=== PATIENT | female | born 1980 | race Caucasian/White ===

== ENCOUNTER 2017-04-21 11:00 | Observation (INO) | payer OTHER ==
[~2017-04-21] VITALS: Ht 152.4 cm; Wt 57.0 kg
[2017-04-21] MEDS ORDERED: PREN1TAB80 PO (11:31)
[2017-04-21 11:32] VITALS: BP 104/65
== END 2017-04-21 15:15 | disposition home or self-care (01) ==
LOC: 4S 11:00
PROVIDERS: ADMIT Obstetrics & Gynecology; ATTEND Obstetrics & Gynecology
DX: O41.03X0 Oligohydramnios, third trimester, not applicable or unspecified (principal); O09.523 Supervision of elderly multigravida, third trimester; Z3A.38 38 weeks gestation of pregnancy
CPT/HCPCS: 59025; G0378

== ENCOUNTER 2017-04-24 10:50 | Observation (INO) | payer OTHER ==
[~2017-04-24] VITALS: Ht 149.9 cm; Wt 56.7 kg
[~2017-04-24 10:50] MED LIST: PREN1TAB80 PO
[2017-04-24 11:06] VITALS: BP 119/68
== END 2017-04-24 12:00 | disposition home or self-care (01) ==
LOC: INTOOBSV 10:50 → 4S 10:50 → OBSVTOIN 10:50 → UNDOADMOB 10:55 → 4S 10:55
PROVIDERS: ADMIT Obstetrics & Gynecology; ATTEND Obstetrics & Gynecology
DX: O41.03X0 Oligohydramnios, third trimester, not applicable or unspecified (principal); O09.523 Supervision of elderly multigravida, third trimester; Z3A.38 38 weeks gestation of pregnancy
CPT/HCPCS: 59025; G0378

== ENCOUNTER 2017-04-28 05:48 | Inpatient (IN) | payer OTHER ==
[~2017-04-28] VITALS: Ht 149.9 cm; Wt 57.6 kg
[2017-04-28] MEDS ORDERED: RINGERS SOLUTION,LACTATED 1,000 ML IV ONE (06:03)
[2017-04-28] MEDS ORDERED: METOCLOPRAMIDE HCL 5 MG/ML 2 ML VIAL IVP ONE (06:15)
[2017-04-28] MEDS ORDERED: CITRIC ACID/SODIUM CITRATE 30 ML SOLUTION UDCUP PO ONE (06:15)
[2017-04-28] MEDS ORDERED: MORPHINE SULFATE/PF 1 MG/ML 10 ML AMP ONE (06:27)
[2017-04-28 06:28] LABS: BASOPHILS % (AUTO) 0.2 % (0.0-2.0); EOSINOPHILS % (AUTO) 2.1 % (1.0-6.0); HEMOGLOBIN 12.5 g/dL (12.0-16.0); LYMPHOCYTES # (AUTO) 2.2 K/uL (1.0-4.8); LYMPHOCYTES % (AUTO) 19.9 % (22.0-44.0); MEAN CORPUSCULAR HGB CONC 33.9 G/dL (31.0-37.0); MEAN CORPUSCULAR VOLUME 88 fL (80-100); MONOCYTES # (AUTO) 0.9 K/uL (0.1-1.0); MONOCYTES % (AUTO) 8.5 % (2.0-9.0); NEUTROPHILS # (AUTO) 7.6 K/uL (1.8-7.7); NEUTROPHILS % (AUTO) 69.3 % (40.0-70.0); RED BLOOD CELL COUNT(AUTO) 4.19 MIL/uL (4.00-5.20); RED CELL DISTRIBUTION WIDTH 14.2 % (11.5-14.5); WHITE BLOOD COUNT (AUTO) 10.9 K/uL (4.5-11.0)
[2017-04-28 06:53] VITALS: BP 112/55
[2017-04-28] MEDS ORDERED: MEPERIDINE-PF 25 MG/ML SYRINGE IVP PRN (07:00)
[2017-04-28] MEDS ORDERED: FentaNYL CITRATE-PF 100 MCG/2 ML VIAL IVP PRN (07:15)
[2017-04-28] MEDS ORDERED: DiphenhydrAMINE HCL 50 MG/ML VIAL IVP PRN (07:15)
[2017-04-28] MEDS ORDERED: NALBUPHINE HCL 10 MG/ML VIAL IVP PRN ×2 (07:15)
[2017-04-28] MEDS ORDERED: NALOXONE HCL 0.4 MG/ML VIAL IVP PRN (07:15)
[2017-04-28] MEDS ORDERED: ONDANSETRON HCL 4 MG/2 ML VIAL IVP PRN (07:15)
[2017-04-28] MEDS ORDERED: OXYGEN THERAPY IH SCH ×2 (08:00)
[2017-04-28] MEDS ORDERED: ACETAMINOPHEN/CODEINE 300-30 MG TABLET PO PRN (09:00)
[2017-04-28] MEDS ORDERED: LANOLIN 7 GM OINTMENT TP PRN (09:00)
[2017-04-28] MEDS: NALBUPHINE HCL 10 MG/ML VIAL IVP SCH ×3 (10:10→21:42)
[2017-04-28] MEDS ORDERED: ONDANSETRON HCL 4 MG/2 ML VIAL IVP ONE (12:00)
[2017-04-28] MEDS ORDERED: OXYTOCIN 10 UNITS/ML VIAL IM ONE (12:00)
[2017-04-28] MEDS ORDERED: GLYCOPYRROLATE 0.2 MG/ML VIAL IM ONE (12:00)
[2017-04-28] MEDS ORDERED: EPHEDrine SULFATE 50 MG/ML VIAL IM ONE (12:00)
[2017-04-28] MEDS: DEXTROSE 5%-0.45% SODIUM CHL 1,000 ML IV SCH ×3 (14:03→23:32)
[2017-04-28] MEDS: MAGNESIUM HYDROXIDE SUSPENSION 30 ML UDCUP PO SCH (21:42)
[2017-04-29] MEDS: IBUPROFEN 800 MG TABLET PO SCH ×4 (02:00→20:21)
[2017-04-29] MEDS: DEXTROSE 5%-0.45% SODIUM CHL 1,000 ML IV SCH (04:16)
[2017-04-29] MEDS: NALBUPHINE HCL 10 MG/ML VIAL IVP SCH (04:16)
[2017-04-29] MEDS: OXYGEN THERAPY IH SCH (07:52)
[2017-04-29] MEDS: MAGNESIUM HYDROXIDE SUSPENSION 30 ML UDCUP PO SCH ×2 (08:32→21:25)
[2017-04-29] MEDS ORDERED: FentaNYL CITRATE-PF 100 MCG/2 ML VIAL IVP ONE (12:00)
[2017-04-30] MEDS: IBUPROFEN 800 MG TABLET PO SCH ×4 (02:03→20:31)
[2017-04-30 05:33] LABS: BASOPHILS # (AUTO) 0.04 K/uL (0.00-0.20); BASOPHILS % (AUTO) 0.3 % (0.0-2.0); EOSINOPHILS % (AUTO) 2.58 % (1.0-6.0); HEMATOCRIT 36.3 % (36-46); LYMPHOCYTES # (AUTO) 1.9 K/uL (1.0-4.8); MEAN CORPUSCULAR HEMOGLOBIN 29.8 pg (26.0-34.0); MEAN CORPUSCULAR VOLUME 90 fL (80-100); MONOCYTES # (AUTO) 0.8 K/uL (0.1-1.0); MONOCYTES % (AUTO) 7.2 % (2.0-9.0); NEUTROPHILS # (AUTO) 8.5 K/uL (1.8-7.7); NEUTROPHILS % (AUTO) 73.9 % (40.0-70.0); RED BLOOD CELL COUNT(AUTO) 4.02 MIL/uL (4.00-5.20); RED CELL DISTRIBUTION WIDTH 14.4 % (11.5-14.5); WHITE BLOOD COUNT (AUTO) 11.5 K/uL (4.5-11.0)
[2017-04-30] MEDS: OXYGEN THERAPY IH SCH (08:00)
[2017-04-30] MEDS: MAGNESIUM HYDROXIDE SUSPENSION 30 ML UDCUP PO SCH ×2 (09:00→21:00)
[2017-04-30] MEDS: ACETAMINOPHEN/CODEINE 300-30 MG TABLET PO PRN (10:05)
[2017-05-01] MEDS: ACETAMINOPHEN/CODEINE 300-30 MG TABLET PO PRN ×2 (00:20→08:18)
[2017-05-01] MEDS: IBUPROFEN 800 MG TABLET PO SCH ×2 (03:01→09:39)
[2017-05-01] MEDS: MAGNESIUM HYDROXIDE SUSPENSION 30 ML UDCUP PO SCH (09:41)
[2017-05-01] MEDS ORDERED: IBUP-2070 PO (11:43)
[2017-05-01] MEDS ORDERED: TYL3B PO (11:44)
== END 2017-05-01 13:15 | disposition home or self-care (01) | DRG 766 ==
LOC: 4S 05:48 → PREOBSVTOIN 05:57
PROVIDERS: ADMIT Obstetrics & Gynecology; ATTEND Obstetrics & Gynecology
PROC: 10D00Z1 Extraction of Products of Conception, Low, Open Approach (ICD-10-PCS; principal; 2017-04-28)
PROC: 0UL70ZZ Occlusion of Bilateral Fallopian Tubes, Open Approach (ICD-10-PCS; 2017-04-28)
DX: O34.211 Maternal care for low transverse scar from previous cesarean delivery (principal); Z3A.39 39 weeks gestation of pregnancy; Z37.0 Single live birth; Z30.2 Encounter for sterilization; O09.523 Supervision of elderly multigravida, third trimester; Z91.010 Allergy to peanuts
CPT/HCPCS: 86850; 86900; 86901; 87081; 88302; J0690; J2300; J2405; J2590; J2765; J3010; J3490